=== PATIENT | male | born 1965 | race Caucasian/White ===

== ENCOUNTER 2017-07-14 20:48 | Emergency (ER) | payer OTHER ==
[~2017-07-14] VITALS: Ht 172.7 cm; Wt 72.6 kg
[2017-07-14 20:48] VITALS: BP_SYST 157
[2017-07-14 21:05] VITALS: BP_SYST 148
== END 2017-07-14 21:05 ==
LOC: SED 20:48
DX: Z02.89 Encounter for other administrative examinations (principal)